=== PATIENT | female | born 1985 | race American Indian/Alaskan Native ===

== ENCOUNTER 2017-01-05 18:48 | Emergency (ER) | payer OTHER ==
[2017-01-05 18:55] VITALS: BP 152/90; PULSE 87; RESP 16; TEMP 97.9; O2SAT 99; BMI 38.4
--- NOTE | 2017-01-05 19:27 | ED PDOC ---
Arrival/HPI - General Chief Complaint: Dental Pain Time Seen by Provider: 01/05/17 18:56 Historian: Patient - History of Present Illness Narrative History of Present Illness (Text): 01/05/17 19:34 31yr old female presents today with a 2 month history of intermittent dental pain. pt denies any trauma or injury. pt states she has been having on and off dental pain to the left upper molar x 2 months. pt states recent flareup was 2 days ago. no fever/chills. denies trismus or drooling. pt states she has been taking motrin for pain without relief. denies any other complaints. Time/Duration: > month Symptom Onset: Gradual Symptom Course: Intermittent Quality: Aching, Throbbing Severity Level: 6 Past Medical History - Provider Review Nursing Documentation Reviewed: Yes - Travel History Have you recently traveled outside [place] w/in the past 3 mons?: No - Tetanus Immunization Tetanus Immunization: Unknown - Psychiatric Hx Substance Use: No Family/Social History - Physician Review Nursing Documentation Reviewed: Yes Family/Social History: Unknown Family HX Smoking Status: Never Smoked Hx Alcohol Use: No Hx Substance Use: No Allergies/Home Meds Allergies/Adverse Reactions: Allergies No Known Allergies Allergy (Verified 01/05/17 19:10) Review of Systems - Review of Systems Constitutional: absent: Fatigue, Fevers Eyes: absent: Eye Pain ENT: Other (+ left upper molar dental pain). absent: Sore Throat, Sinus Congestion Respiratory: absent: SOB, Cough Cardiovascular: absent: Chest Pain, Palpitations Gastrointestinal: absent: Abdominal Pain, Diarrhea, Nausea, Vomiting Musculoskeletal: absent: Arthralgias, Back Pain, Neck Pain Skin: absent: Rash, Pruritis Neurological: absent: Headache, Dizziness Physical Exam Vital Signs Reviewed: Yes Vital Signs Temp Pulse Resp BP Pulse Ox 01/05/17 18:52 97.9 F 87 16 152/90 H 99 Temperature: Afebrile Blood Pressure: Normal Pulse: Regular Respiratory Rate: Normal Appearance: Positive for: Well-Appearing, Non-Toxic, Comfortable Pain Distress: None Mental Status: Positive for: Alert and Oriented X 3 - Systems Exam Head: Present: Atraumatic Conjunctiva: Present: Normal Ears: Present: Normal, NORMAL TM Mouth: Present: Moist Mucous Membranes, Normal Lips, Normal Tounge. No: Drooling, Trismus, Normal Teeth (+ ttp over left upper wisdom tooth; + white plaque noted to buccal mucosa bilaterally, greatest on the left. no erythema; no edema, no ecchymosis; no trismus or drooling. ) Neck: Present: Normal Range of Motion. No: Lymphadenopathy Respiratory/Chest: Present: Clear to Auscultation, Good Air Exchange. No: Respiratory Distress, Accessory Muscle Use Cardiovascular: Present: Regular Rate and Rhythm, Normal S1, S2. No: Murmurs Skin: Present: Warm, Dry Psychiatric: Present: Alert, Oriented x 3 Medical Decision Making ED Course and Treatment: 01/05/17 19:25 Patient is nontoxic well-appearing in no distress with stable vital signs No trismus or drooling, moist mucous membranes Amoxicillin Toradol Patient reassessment: Patient is feeling better after medications. I advised follow-up with the dentist within the next 2 days. I advised immediate return is symptoms worsen persist or if new concerning symptoms develop i advised patient of white patches to buccal mucosa of cheek bilaterally, left greater than right; stressed importance of f/u with dentist due to smoking hx and concern for possible cancerous process. Patient verbalizes understanding of discharge instructions and need for immediate followup. Impression: Toothache, lesion, buccal mucosa Motrin every 6 hours as needed for pain Amoxicillin 1 tablet 3 times daily x 7 days tramadol; 1 tablet every 6 hours as needed for moderate to severe pain; may cause drowsiness. Follow-up with the dentist within the next 2 days regarding your dental pain and the white lesion to the gums. Return immediately if symptoms worsen persist or if new concerning symptoms develop [facility] [address] [place] [address] [place] [address] [phone] Disposition/Present on Arrival - Present on Arrival Any Indicators Present on Arrival: No History of DVT/PE: No History of Uncontrolled Diabetes: No Urinary Catheter: No History of Decub. Ulcer: No History Surgical Site Infection Following: None - Disposition Have Diagnosis and Disposition been Completed?: Yes Diagnosis: Toothache, Lesion of mouth Disposition: HOME/ ROUTINE Disposition Time: 19:23 Patient Plan: Discharge Condition: GOOD Discharge Instructions (ExitCare): Toothache (ED) Additional Instructions: Motrin every 6 hours as needed for pain Amoxicillin 1 tablet 3 times daily x 7 days tramadol; 1 tablet every 6 hours as needed for moderate to severe pain; may cause drowsiness. Follow-up with the dentist within the next 2 days regarding your dental pain and the white lesion to the gums. Return immediately if symptoms worsen persist or if new concerning symptoms develop [facility] [address] [place] [address] [address] [place], [place] [phone] Prescriptions: Amoxicillin 500 mg PO TID #30 tab Ibuprofen [Motrin] 600 mg PO Q6H PRN #20 tab PRN Reason: pain/fever reduction traMADol [Ultram] 50 mg PO Q6H PRN #10 tab PRN Reason: moderate to severe pain Referrals: Kraig García DMD [Non-Staff] - Follow up with primary Pablito James MD [Staff Provider] - Follow up with primary Forms: WORK NOTE
== END 2017-01-05 19:55 | disposition home or self-care (01) ==
LOC: ED 18:48
DX: K08.89 Other specified disorders of teeth and supporting structures (principal); K13.70 Unspecified lesions of oral mucosa
CPT/HCPCS: 96372; 99282; J1885

== ENCOUNTER 2017-05-27 14:40 | Emergency (ER) | payer SELFPAY ==
[2017-05-27 14:41] VITALS: BMI 38.4
[2017-05-27 15:08] VITALS: RESP 18; TEMP 98.6
--- NOTE | 2017-05-27 15:40 | ED PDOC ---
Arrival/HPI - General Chief Complaint: Cough, Cold, Congestion Time Seen by Provider: 05/27/17 15:39 Historian: Patient - History of Present Illness Narrative History of Present Illness (Text): 05/27/17 15:40 This 31 yo female who denies pmh, smoker, presents to this ED c/o cough x 7 days. Patient also noted urinary frequency. On the cotrary of triage note, patient denies back pain. Patient denies sob, cp, abdominal pain, neck pain, rodriguez , hemoptysis, or abnormal gait. Time/Duration: 1 week Context: Home Past Medical History - Provider Review Nursing Documentation Reviewed: Yes - Infectious Disease Hx of Infectious Diseases: None - Tetanus Immunization Tetanus Immunization: Unknown - Reproductive Menopause: No - Psychiatric Hx Substance Use: No - Anesthesia Hx Anesthesia: No Family/Social History - Physician Review Nursing Documentation Reviewed: Yes Family/Social History: Other (noncontributory) Smoking Status: Current Some Days Smoker Hx Alcohol Use: No Hx Substance Use: No Allergies/Home Meds Allergies/Adverse Reactions: Allergies No Known Allergies Allergy (Verified 05/27/17 15:00) Review of Systems - Review of Systems Constitutional: Normal. absent: Fatigue, Weight Change, Fevers, Night Sweats Eyes: Normal ENT: Normal. absent: Sore Throat, Rhinorrhea Respiratory: Cough. absent: SOB, Sputum, Wheezing Cardiovascular: Normal. absent: Chest Pain, Palpitations, Edema, Calf Pain, VALDEZ , Orthopnea, Syncope Gastrointestinal: Normal. absent: Abdominal Pain, Nausea, Vomiting Genitourinary Female: Frequency. absent: Dysuria, Hematuria, Urine Output Changes, Vaginal Bleeding, Vaginal Discharge Musculoskeletal: Normal. absent: Arthralgias, Back Pain, Neck Pain, Joint Swelling, Myalgias Skin: Normal. absent: Rash Neurological: Normal. absent: Headache, Dizziness, Focal Weakness, Gait Changes , Speech Changes, Facial Droop, Disequilibrium, Seizure Endocrine: Normal Hemo/Lymphatic: Normal Psychiatric: Normal Physical Exam Vital Signs Temp Pulse Resp BP Pulse Ox 05/27/17 15:57 86 18 114/70 98 05/27/17 14:57 98.6 F 90 18 114/70 100 Temperature: Afebrile Blood Pressure: Normal Pulse: Regular Respiratory Rate: Normal Appearance: Positive for: Well-Appearing, Non-Toxic, Comfortable Pain Distress: None Mental Status: Positive for: Alert and Oriented X 3 - Systems Exam Head: Present: Atraumatic, Normocephalic Pupils: Present: PERRL Extroacular Muscles: Present: EOMI Conjunctiva: Present: Normal Mouth: Present: Moist Mucous Membranes Neck: Present: Normal Range of Motion. No: Meningeal Signs, MIDLINE TENDERNESS , Paraspinal Tenderness Respiratory/Chest: Present: Clear to Auscultation, Good Air Exchange. No: Respiratory Distress, Accessory Muscle Use, Wheezes, Decreased Breath Sounds, Rales, Retracting, Rhonchi, Tachypneic, Tender to Palpation Cardiovascular: Present: Regular Rate and Rhythm, Normal S1, S2. No: Murmurs Abdomen: Present: Normal Bowel Sounds. No: Tenderness, Distention, Peritoneal Signs, Rebound, Guarding Back: Present: Normal Inspection. No: CVA Tenderness Upper Extremity: Present: Normal Inspection, Normal ROM, NORMAL PULSES, Neurovascularly Intact, Capillary Refill < 2s. No: Cyanosis, Edema Lower Extremity: Present: Normal Inspection, NORMAL PULSES, Normal ROM, Neurovascularly Intact, Capillary Refill < 2 s. No: Edema Neurological: Present: GCS=15, CN II-XII Intact, Speech Normal, Motor Func Grossly Intact, Normal Sensory Function, Normal Cerebellar Funct, Gait Normal, Memory Normal Skin: Present: Warm, Dry, Normal Color. No: Rashes Psychiatric: Present: Alert, Oriented x 3, Normal Insight, Normal Concentration Medical Decision Making ED Course and Treatment: 05/27/17 16:51 Patient is resting comfortably, and is in no acute distress. Patient was instructed to follow up with PMD in 1-2 days for further evaluation Patient was recommended to f/u pmd to review std test. She understood and agreed with plan. She was recommended to have partner recheck for std Re-evaluation Time: 16:53 Reassessment Condition: Re-examined, Improved - Lab Interpretations Lab Results: Lab Results 05/27/17 15:45: Urine Color Yellow, Urine Appearance Clear, Urine pH 6.0, Ur Specific Dumas 1.025, Urine Protein Negative, Urine Glucose (UA) Negative, Urine Ketones Negative, Urine Blood Trace-intact H, Urine Nitrate Negative, Urine Bilirubin Negative, Urine Urobilinogen 0.2, Ur Leukocyte Esterase Trace H , Urine RBC 0 - 2, Urine WBC 1 - 3, Ur Epithelial Cells 3 - 4, Urine Bacteria Trace, Urine Other Trichomonas, Urine HCG, Qual Negative I have reviewed the lab results: Yes Interpretation: Abnormal lab values - Medication Orders Current Medication Orders: Discontinued Medications Metronidazole (Flagyl) 2,000 mg PO STAT STA PRN Reason: Protocol Stop: 05/27/17 16:48 Disposition/Present on Arrival - Present on Arrival Any Indicators Present on Arrival: No History of DVT/PE: No History of Uncontrolled Diabetes: No Urinary Catheter: No History of Decub. Ulcer: No History Surgical Site Infection Following: None - Disposition Have Diagnosis and Disposition been Completed?: Yes Diagnosis: Trichomoniasis, Upper respiratory infection Disposition: HOME/ ROUTINE Disposition Time: 16:54 Patient Plan: Discharge Patient Problems: Current Active Problems Problem Status Onset Trichomoniasis Acute Upper respiratory infection Acute Condition: GOOD Discharge Instructions (ExitCare): Trichomoniasis (ED), Upper Respiratory Infection (ED) Additional Instructions: Call private doctor for follow up visit in 1-2 days. Review STD test with your doctor in 3-5 days. Have partner to get check for STD. Do not have sexual intercourse till clear by your doctor. return to emergency if symptoms worsen. Prescriptions: Doxycycline Monohydrate 100 mg PO BID #20 tablet Promethazine [Phenergan Syrup] 5 ml PO Q6H PRN #120 ml PRN Reason: Cough Referrals: PCP,NO [Primary Care Provider] - Follow up with primary [facility] [Outside] - Follow up with primary [facility] [Outside] - Follow up with [facility] [Outside] - Follow up with primary Forms: [employer]push (Upper Sorbian)
[2017-05-27 16:11] LABS: URINE BILIRUBIN NEGATIVE (NEGATIVE); URINE BLOOD TRACE-INTACT (NEGATIVE); URINE GLUCOSE (UA) NEGATIVE (NEGATIVE); URINE KETONE NEGATIVE (NEGATIVE); URINE LEUKOCYTE ESTERASE TRACE Leu/uL (NEGATIVE); URINE PROTEIN NEGATIVE mg/dL (<30 mg/dL); URINE UROBILINOGEN 0.2 E.U./dL (<1 E.U./dL)
[2017-05-27 16:12] LABS: URINE APPEARANCE CLEAR (CLEAR); URINE COLOR YELLOW (YELLOW)
[2017-05-27 16:27] LABS: URINE BACTERIA TRACE (NEG); URINE RBC 0 - 2 /hpf (0-2)
[2017-05-27] MEDS ORDERED: cefTRIAXone (Rocephin) 250 mg Inj IM STA (16:50)
[2017-05-27 16:58] VITALS: BP 116/75; PULSE 79; O2SAT 99
== END 2017-05-27 17:23 | disposition home or self-care (01) ==
LOC: ED 14:40
DX: J06.9 Acute upper respiratory infection, unspecified (principal); A59.9 Trichomoniasis, unspecified
CPT/HCPCS: 81001; 84703; 87086; 87491; 87591; 96372; 99283; J0696